=== PATIENT | male | born 1970 | race Caucasian/White ===

== ENCOUNTER 2022-02-22 07:13 | Emergency (ER) | payer SELFPAY ==
[2022-02-22 07:18] VITALS: BP 129/84
== END 2022-02-22 08:56 | disposition home or self-care (01) ==
LOC: ED 07:13
DX: S51.812A Laceration without foreign body of left forearm, initial encounter (principal); Z28.310 Unvaccinated for COVID-19; W25.XXXA Contact with sharp glass, initial encounter; Y92.59 Other trade areas as the place of occurrence of the external cause; Y99.0 Civilian activity done for income or pay